=== PATIENT | female | born 1980 | race Caucasian/White ===

== ENCOUNTER 2016-07-29 12:00 | Day surgery (SDCO) | payer OTHER ==
[~2016-07-29] VITALS: Ht 160 cm; Wt 61.9 kg
[2016-07-29 11:39] LABS: HCT 37.5 % (37.0-47.0); HGB 12.1 g/dl (12.5-16.0); MCH 32.4 pg (25.0-31.0); MCHC 32.3 g/dL (32.0-36.0); MCV 100.3 fL (78.0-100.0); MPV 9.8 fL (6.0-9.5); RBC 3.74 M/uL (4.20-5.40); RDW 14.6 % (11.5-14.0); WBC 9.2 K/uL (4.0-10.5)
[2016-07-29 11:53] LABS: CREATININE 0.7 mg/dL (0.5-1.0); POTASSIUM 4.1 mmol/L (3.5-5.1)
[2016-07-30 05:13] LABS: HCT 35.3 % (37.0-47.0); HGB 11.1 g/dl (12.5-16.0); MCHC 31.4 g/dL (32.0-36.0); MCV 101.7 fL (78.0-100.0); MPV 9.9 fL (6.0-9.5); RBC 3.47 M/uL (4.20-5.40); RDW 14.6 % (11.5-14.0); WBC 9.8 K/uL (4.0-10.5)
[2016-07-30] MEDS ORDERED: KEFLEX250 MG PO (17:10)
[2016-07-30] MEDS ORDERED: NORCO 5-325 TA1 EACH PO (17:11)
[2016-07-30] MEDS ORDERED: COLACE100 MG PO (17:11)
[2016-07-30] MEDS ORDERED: TAMOXIFEN CITRA20 MG PO (17:12)
[2016-07-30] MEDS ORDERED: SEROQUEL 100MG100 MG PO (17:12)
[2016-07-30] MEDS ORDERED: EFFEXOR XR75 MG PO (17:13)
[2016-07-30] MEDS ORDERED: HAIR, SKIN & N1 EACH PO (17:13)
[2016-07-30] MEDS ORDERED: VITAMIN B-121000 MC1 PO (17:13)
[2016-07-30] MEDS ORDERED: PRILOSEC20 MG PO (17:14)
== END 2016-07-30 12:11 | disposition home or self-care (01) ==
LOC: FMS 12:00
PROVIDERS: ADMIT Surgery
DX: Z42.1 Encounter for breast reconstruction following mastectomy (principal); K21.9 Gastro-esophageal reflux disease without esophagitis; F98.8 Other specified behavioral and emotional disorders with onset usually occurring in childhood and adolescence; F41.9 Anxiety disorder, unspecified; F31.9 Bipolar disorder, unspecified; G56.00 Carpal tunnel syndrome, unspecified upper limb; G43.909 Migraine, unspecified, not intractable, without status migrainosus; Z85.3 Personal history of malignant neoplasm of breast; Z92.21 Personal history of antineoplastic chemotherapy; Z98.51 Tubal ligation status; Z92.3 Personal history of irradiation; Z90.11 Acquired absence of right breast and nipple; Z98.890 Other specified postprocedural states; Z80.49 Family history of malignant neoplasm of other genital organs; Z83.3 Family history of diabetes mellitus; Z83.49 Family history of other endocrine, nutritional and metabolic diseases; Z81.8 Family history of other mental and behavioral disorders
CPT/HCPCS: 36415; 80048; 84703; 88307; 94010; 94760; 94762; C1781; C1789; G0378; J0690; J1170; J1885; J2270; J2405; J2704; J3010

== ENCOUNTER → 2021-09-16 | Day surgery (SDC) | payer OTHER ==
[~2021-09-16] VITALS: Ht 160 cm; Wt 72.7 kg
[~2021-09-16] MED LIST: ATARAX25 MG PO; CELEXA10 MG PO; CLEOCIN300 MG PO; CLONIDINE 0.2M0.2 MG PO; COLACE100 MG PO; EFFEXOR XR75 MG PO; FLEXERIL5 MG PO; GUANFACINE HCL1 MG PO; HAIR, SKIN & N1 EACH PO; IBUPROFEN800 MG PO; KEFLEX250 MG PO; LINZESS72 MCG PO; MOTRIN600 MG PO; NORCO 5-325 TA1 EACH PO; OLANZAPINE20 MG PO; PERCOCET 5-3251 EACH PO; PREDNISONE50 MG PO; PRILOSEC20 MG PO; SEROQUEL 100MG100 MG PO; SUBOXONE 8 MG-1 EACH PO; SYNTHROID25 MCG PO; TAMOXIFEN CITRA20 MG PO; TRAMADOL HCL50 MG PO; VITAMIN B-121000 MC1 PO
[2021-09-16 11:59] LABS: HCT 39.9 % (37.0-47.0); HGB 12.4 g/dl (12.5-16.0); MCH 30.5 pg (25.0-31.0); MCHC 31.1 g/dL (32.0-36.0); MCV 98.3 fL (78.0-100.0); MPV 10.6 fL (6.0-9.5); RBC 4.06 M/uL (4.20-5.40); WBC 7.5 K/uL (4.0-10.5)
== END | disposition home or self-care (01) ==
LOC: FAS 11:04
PROVIDERS: Legal Medicine
DX: G56.01 Carpal tunnel syndrome, right upper limb (principal); M65.331 Trigger finger, right middle finger; I10 Essential (primary) hypertension; F17.200 Nicotine dependence, unspecified, uncomplicated; E03.9 Hypothyroidism, unspecified; Z91.048 Other nonmedicinal substance allergy status; Z91.09 Other allergy status, other than to drugs and biological substances; Z79.1 Long term (current) use of non-steroidal anti-inflammatories (NSAID); Z79.891 Long term (current) use of opiate analgesic; Z79.899 Other long term (current) drug therapy
CPT/HCPCS: 36415; J0690; J1100; J1885; J2001; J2250; J2405; J2704; J2795; J7120